=== PATIENT | male | born 1980 | race African-American/Black ===

== ENCOUNTER 2023-12-13 10:35 | Emergency (ER) | payer MEDICAID, SELFPAY ==
[2023-12-13 10:44] VITALS: BP 135/84
[2023-12-13 10:56] LABS: % Basophils 0.3 % (0-2); % Eosinophils 2.2 % (0-6); % Immature Granulocytes 0.2 % (0-0.5); % Monocytes 10.8 % (1.7-9.3); % Neutrophils 50.5 % (42.2-75.2); Absolute Eosinophils 0.1 10^3/uL (0-0.7); Absolute Lymphocytes 2.3 10^3/uL (1.2-3.4); Absolute Monocytes 0.7 10^3/uL (0.1-0.6); Absolute Neutrophils 3.2 10^3/uL (1.4-6.5); Hematocrit 42.8 % (39.0-52.0); Hemoglobin 14.3 g/dL (13.0-18.0); Mean Corp Hgb Conc. 33.4 g/dL (33.0-37.0); Mean Corpuscular Hgb 29.2 pg (27.0-31.0); Mean Corpuscular Volume 87.3 fL (80.0-94.0); Mean Platelet Volume 9.8 fL (7.4-10.4); Nucleated Red Blood Cells % 0 % (-); Platelet Count 169 10^3/uL (130-400); Red Cell Dist. Width 13.6 % (11.5-14.5); White Blood Cell Count 6.4 10^3/uL (4.8-10.8)
[2023-12-13 10:59] LABS: Urine Albumin Negative (Neg - Trace); Urine Bilirubin Negative (Negative); Urine Character Clear (Clear); Urine Color Yellow; Urine Glucose Negative (Negative); Urine Ketone Negative (Negative); Urine Leukocyte Negative (Negative); Urine Nitrite Negative (Negative); Urine Occult Blood Negative (Negative); Urine Urobilinogen Negative (Neg - 1+); Urine pH 6.5 (5.0-9.0)
[2023-12-13 11:10] LABS: ALT (SGPT) 58 U/L (0-50); AST (SGOT) 38 U/L (17-59); Albumin 4.4 g/dl (3.5-5.0); Alkaline Phosphatase 64 U/L (38-126); Blood Urea Nitrogen 22 mg/dl (9-20); Calcium 9.6 mg/dl (8.4-10.2); Carbon Dioxide 30 mmol/L (22-30); Chloride 103 mmol/L (98-107); Glucose 92 mg/dl (70-99); Potassium 4.7 mmol/L (3.5-5.1); Sodium 139 mmol/L (135-145); Total Bilirubin 0.9 mg/dl (0.2-1.3); Total Protein 7.4 g/dl (6.3-8.2); eGFR > 60.00
[2023-12-13 11:39] LABS: Lipase 130 U/L (23-300)
--- NOTE | 2023-12-13 12:24 | ED.GENMED ---
History of Present Illness
General
Chief Complaint: Abdominal Symptoms
Source: patient
Exam Limitations: none
Time Seen by Provider: 12/13/23 11:47
Nursing documentation reviewed up to this point in time: agreed with
Travel History
Have you had any contact with someone who has COVID-19?: No
Do you have any symptoms of coronavirus? Fever > 100 degrees, chills, cough, shortness of breath, sore throat, loss of taste or smell, muscle aches, or headache?: No
History of Present Illness
History of Present Illness:
Patient is a 43-year-old male who complains of back pain for the past 2 weeks. He complains of right sided back pain. He denies any injury. He reports pain has been getting increasingly worse. He was seen by his family doctor recently and had
x-rays which show kidney stones but no fracture. He does however complain of pain that radiates to his right leg. He has intermittent tingling. He was prescribed meloxicam which he has been taking and Skelaxin which she has not taken. He reports
there is no relief with meloxicam. He has not taken it today. He denies any urinary frequency urgency or dysuria. Denies any obvious hematuria he denies any abdominal pain fever chills.
He called his family doctor today who recommended he come to the ER for evaluation of possible kidney stone due to worsening pain.
Past History
Past History
ED Past Medical History: None and Other (Hyperthyroidism)
ED Past Surgical History: None
Social History
Tobacco: Non-smoker
Alcohol: Occasional
Personal: Single
Living: with family
Family History
Family History: Other (Father with depression and hypertension and posttraumatic stress syndrome)
Review of Systems
Review of Systems
Allergies reviewed?: Yes
All Other Systems: ROS reviewed and negative except as documented in HPI and ROS
Constitutional: Reports no symptoms
Respiratory: Reports no symptoms
Cardiac: Reports no symptoms
ABD/GI: Denies abdominal pain, nausea or vomiting
: Reports flank pain
Musculoskeletal: Reports back pain (right sided back pain which radiates to right leg )
Phy Exam
General Physical Exam
General Presentation: no apparent distress
General age: appears stated age
General Skin: warm and dry
General Habitus: normal
General Mental: alert
General Hydration: appears well hydrated
Gastrointestinal Exam
Gastrointestinal Exam: non tender and soft
Neurological Exam
Neurological Exam: alert and oriented x3
Musculoskeletal Exam
Musculoskeletal Exam: other (Tender to the right lower paralumbar region)
Skin Exam
Skin Exam: normal color and warm/dry
Psychiatric Exam
Psychiatric Exam: normal mood/affect
Course
Orders/Labs/Results
Orders:
Orders
12/13/23 10:50
Complete Blood Count/With Diff Urgent
Comprehensive Metabolic Panel Urgent
Lipase Urgent
Urinalysis Reflex To Culture Urgent
Date Specimen was Collected: 12/13/23
Time Specimen was Collected: 10:47
12/13/23 12:38
CT Abd/pel Without Iv Or Oral Urgent
Comment:
Reason For Exam: right flank pain
diazePAM [Valium Injection] 5 mg IM NOW STA
12/13/23 13:03
Dexamethasone Sod Phos Pf [Decadron] 10 mg IM NOW STA
12/13/23 13:13
Dexamethasone Pf [Decadron] 10 mg .ROUTE .STK-MED ONE
Abnormal Lab Results
12/13/23
10:50
Absolute Monos (auto) 0.7 H 10^3/uL
(0.1-0.6)
Monocytes % 10.8 H %
(1.7-9.3)
BUN 22 H mg/dl
(9-20)
ALT 58 H U/L
(0-50)
12/13/23 10:50
12/13/23 10:50
Vital Signs
Initial and Last Documented VS:
Initial Vital Signs
Temp Pulse Resp BP Pulse Ox
98.0 F 77 16 135/84 98
12/13/23 10:44 12/13/23 10:44 12/13/23 10:44 12/13/23 10:44 12/13/23 10:44
Last Documented Vital Signs
Temp Pulse Resp BP Pulse Ox
98.0 F 76 18 118/84 100
12/13/23 10:44 12/13/23 14:11 12/13/23 14:11 12/13/23 14:11 12/13/23 14:11
MDM/Problems Addressed
Differential Diagnosis Includes:
not limited to: back pain, sciatica , less likely renal colic
MDM/Problems Addressed:
Patient is a 43-year-old male who presents to the ER complaining right back pain which radiates down his right leg. He was seen by pcp and started on meloxicam and Skelaxin but has not taken Skelaxin. He reports x-ray at PCPs office showed a
questionable kidney stone he was sent to the ER for continued pain. He complains of pain that radiates from his right lower back to his right buttocks to his right leg with some intermittent right foot tingling. He denies any bowel or bladder
incontinence. He denies any urinary frequency urgency or dysuria. He denies any trauma. He denies any abdominal pain. Symptoms are consistent with sciatica. On exam he is awake alert no acute distress normal neurologic exam. Patient was given
IM Decadron and Valium here. He does have a prescription for Skelaxin at home he has not used this I did recommend he take this along with a prescription for prednisone. I did recommend the patient stop meloxicam.
Discussed close outpatient follow with PCP and orthopedics if needed may need further imaging. I also reviewed CAT scan findings with patient regarding the short segment focal narrowing of the ascending colon discussed close outpatient follow-up
with family doctor and his GI specialist. He does have a GI specialist.
*Radiology
Radiology exam reviewed: radiology read reviewed
*Pulse Oximetry
Patient hypoxic: no
*Critical Care Note
Total Time (30-74mins, 75-104mins- exclusive of procedures): Not Applicable
ED Attending Note
-
Portions of this chart may have been created with voice recognition software.� Occasional wrong word or��sound alike� substitutions may have occurred due to the inherent limitations of voice recognition software.
Discharge Plan
Departure
Patient Disposition: Home (Routine Discharge)
Date of Disposition: 12/13/23
Time of Disposition: 14:44
Patient with high blood pressure during this ER visit?: Yes
Condition: Fair
Covid-19: Not Applicable
Discharge Problem:
Sciatica
Instructions: Sciatica (DC), BLOOD PRESSURE
Prescriptions:
New
prednisone 10 mg Tablet
See Rx Instructions .ROUTE .COMPLEX Qty: 30 0RF
Rx Instructions:
Take By Mouth:
40 mg daily x3 days, 30 mg daily x3 days,
20 mg daily x3 days, 10 mg daily x3 days.
No Action
acetaminophen [Tylenol Extra Strength] 500 MG tablet
1,000 mg PO PRN PRN (Reason: HAINES)
propranolol 40 MG tablet
40 mg PO BID
methimazole 10 MG tablet
10 mg PO Q12H
hydrocodone-acetaminophen [Vicodin] 1 EACH tablet
1 ea PO Q4HPRN PRN (Reason: pain) Qty: 20 0RF
Referrals:
Stephanie Gaspar MD [Family Provider] -
Stand Alone Forms: Return to Work
Activity Restrictions/Additional Instructions:
A prescription for steroids was sent to your pharmacy take as directed. Stop meloxicam. You may however use Skelaxin as previously prescribed by your family doctor. Follow-up with your family doctor the next of days for reevaluation of your
symptoms and orthopedics if needed. You might need further imaging including MRI if symptoms continue. Also as discussed please follow-up for abnormality on your CAT scan regarding narrowing of your intestine.
Return if any worsening of symptoms
Interventions
Interventions:
*Risk Screen - Suicide Last Done: 12/13/23 11:18
*General Assessment Last Done: 12/13/23 11:18
*Neglect/Abuse Screening Last Done: 12/13/23 11:18
*ED COVID-19 Vaccine History Last Done: 12/13/23 10:44
GD-Knurof-Syutontppx Assessment Last Done: 12/13/23 11:18
[2023-12-13] MEDS: VALIUM INJECTION 5 MG IM (13:16)
[2023-12-13] MEDS: DECADRON 10 MG IM (13:16)
[2023-12-13 14:11] VITALS: BP 118/84
== END 2023-12-13 14:55 | disposition home or self-care (01) ==
LOC: EMR 10:35
PROVIDERS: EMERGENCY PHYSICIAN Emergency Medicine; FAMILY PHYSICIAN Family Medicine
DX: M54.40 Lumbago with sciatica, unspecified side (principal); E05.90 Thyrotoxicosis, unspecified without thyrotoxic crisis or storm; Z82.49 Family history of ischemic heart disease and other diseases of the circulatory system; Z87.442 Personal history of urinary calculi
CPT/HCPCS: 99284; 96372; 74176; 80053; 81003; 83690; 85025

== ENCOUNTER 2024-05-01 03:50 | Emergency (ER) | payer OTHER, SELFPAY ==
[2024-05-01 03:56] VITALS: BP 154/83
--- NOTE | 2024-05-01 06:02 | ED.GENMED ---
History of Present Illness
General
Chief Complaint: Back Pain
Time Seen by Provider: 05/01/24 06:02
History of Present Illness
History of Present Illness:
HPI: The patient presents with low back pain that radiates to the right lower extremity. He has a history of sciatica. Symptoms started yesterday. He reports some weakness in the right lower extremity but has no bowel or bladder incontinence or
retention. He denies any IV drug use. He does smoke marijuana.
EXAM:
GENERAL: Well appearing but appears rather uncomfortable, he continues to rub the right thigh
HEENT: Moist oral mucosa
CARDIOVASCULAR: No murmurs, normal heart rate, regular rhythm, No chest wall tenderness
PULMONARY: No respiratory distress, breath sounds are clear and equal
ABDOMEN: Soft with no peritoneal signs, no tenderness
BACK: Some vague tenderness to palpation of the right low back, no midline tenderness
NEUROLOGIC: Good strength in the upper extremities, there is decreased strength in an L5 and S1 distribution to the right lower extremity
PSYCHIATRIC: Appropriate mental status, normal insight and judgement
EXTREMITIES: Nontender, no edema, moves all extremities equally
SKIN: No rash, no lesions
TIME OF INITIAL ENCOUNTER: 6 AM
NUMBER AND COMPLEXITY OF PROBLEMS ADDRESSED AT THE ENCOUNTER
� Chronic conditions affecting care: Sciatica, thyroid disease, has had kidney stones
� Acute Exacerbation and/or Progression of Chronic Illness: This is an acute but recurring problem
� Differential Diagnosis includes: Acute exacerbation of sciatica
AMOUNT AND/OR COMPLEXITY OF DATA TO BE REVIEWED AND ANALYZED
� I performed an independent evaluation of and my interpretation is:
EKG:
CT:
X-rays:
Laboratory Studies:
Other:
� Review of other/old records: I reviewed CT of the abdomen pelvis report from November 2023; the patient has not had MRI of the L-spine according to review of old records
� Clinical information was obtained by an independent historian: None needed
� Prescriptions/Medications Considered but not given: I offered and considered narcotic analgesia but patient declines
� Further testing considered but not performed:
RISK OF COMPLICATIONS AND/OR MORBIDITY OR MORTALITY OF PATIENT MANAGEMENT
� Social determinants of health affecting care:
� Discussion with other providers:
� Escalation of care including admission/observation vs risk of discharge considered: Patient was given a dose of Toradol as well as a dose of oral steroids. He saw treatment specialist and was prescribed diclofenac. He states he
is not looking for narcotic analgesia. On reassessment at 7:10 AM, the patient feels significantly improved. He is moving his right lower extremity with improved strength on reassessment.
Past History
Past History
ED Past Medical History: None and Other (Hyperthyroidism)
ED Past Surgical History: None
Social History
Tobacco: Non-smoker
Alcohol: Occasional
Personal: Single
Living: with family
Family History
Family History: Other (Father with depression and hypertension and posttraumatic stress syndrome)
Phy Exam
Physical Exam
Physical Exam:
See HPI
Course
Orders/Labs/Results
Orders:
Orders
05/01/24 06:12
Ketorolac [Toradol] 30 mg IM NOW STA
Prednisone [Deltasone] 50 mg PO NOW STA
Vital Signs
Initial and Last Documented VS:
Initial Vital Signs
Temp Pulse Resp BP Pulse Ox
98.3 F 82 22 154/83 98
05/01/24 03:56 05/01/24 03:56 05/01/24 03:56 05/01/24 03:56 05/01/24 03:56
Last Documented Vital Signs
Temp Pulse Resp BP Pulse Ox
98.3 F 82 22 154/83 98
05/01/24 03:56 05/01/24 03:56 05/01/24 03:56 05/01/24 03:56 05/01/24 03:56
*Critical Care Note
Total Time (30-74mins, 75-104mins- exclusive of procedures): Not Applicable
ED Attending Note
-
Portions of this chart may have been created with voice recognition software.� Occasional wrong word or��sound alike� substitutions may have occurred due to the inherent limitations of voice recognition software.
Discharge Plan
Departure
Patient Disposition: Home (Routine Discharge)
Date of Disposition: 05/01/24
Time of Disposition: 07:12
Patient with high blood pressure during this ER visit?: Yes
Discharge Problem:
Sciatica
Instructions: Sciatica (DC), BLOOD PRESSURE
Prescriptions:
New
prednisone 50 mg tablet
50 mg PO DAILY Qty: 4 0RF
Referrals:
Stephanie Gaspar MD [Family Provider] -
Activity Restrictions/Additional Instructions:
I recommend that you follow-up with your treatment specialist. Next dose of steroids tomorrow. Return here if worse.
Interventions
Interventions:
*Risk Screen - Suicide Last Done: 05/01/24 05:26
*General Assessment Last Done: 05/01/24 05:26
*Neglect/Abuse Screening Last Done: 05/01/24 05:26
*ED COVID-19 Vaccine History Last Done: 05/01/24 05:26
ED-Musculoskeletal Assessment Last Done: 05/01/24 05:26
Discharge Date and Time
Print Language: COMORAN
[2024-05-01] MEDS: TORADOL 30 MG IM (06:36)
[2024-05-01] MEDS: DELTASONE 50 MG PO (06:37)
[2024-05-01 07:39] VITALS: BP 132/75
== END 2024-05-01 07:41 | disposition home or self-care (01) ==
LOC: EMR 03:50
PROVIDERS: EMERGENCY PHYSICIAN Emergency Medicine; FAMILY PHYSICIAN Family Medicine
DX: M54.40 Lumbago with sciatica, unspecified side (principal); Z82.49 Family history of ischemic heart disease and other diseases of the circulatory system
CPT/HCPCS: 99282; 96372